=== PATIENT | female | born 1955 | race Caucasian/White ===

== ENCOUNTER 2022-09-16 14:02 | Outpatient (CLI) | payer MEDICARE ==
--- NOTE | 2022-09-16 09:26 | XRAY Report ---
PROCEDURE: Ankle 3 View LT INDICATIONS: LEFT ANKLE PAIN TECHNIQUE: 3 views of the ankle were acquired. COMPARISON: None FINDINGS: Bones: No fractures or dislocations. Small calcaneal plantar bone spur. The distal fibula is have t endinous calcifications with no fracture or avulsion is suspected. Ankle mortise is normally aligned. No suspicious bony lesions. Soft tissues: No tibiotalar joint effusion. Achilles tendon appears normal. IMPRESSION: No acute osseous abnormality. If symptoms continue consider MRI. Reviewed by: Edwin Block on 09/16/2022 9:25 AM [facility] Approved by: Edwin Block on 09/16/2022 9:25 AM [facility] Station ID: [id number]
== END 2022-09-16 14:03 | disposition home or self-care (01) ==
LOC: DI.S 14:02
PROVIDERS: ATTEND Registered Nurse
DX: M25.572 Pain in left ankle and joints of left foot (principal)

== ENCOUNTER 2023-01-01 12:28 | Outpatient (CLI) | payer MEDICARE ==
--- NOTE | 2023-01-01 15:37 | DEXA Report ---
PROCEDURE: Dexa Spine and/or Hip INDICATIONS: POST MENOPAUSAL TECHNIQUE: Dual energy x-ray absorptiometry (DXA) was performed on a [employer] System. Regions measur ed are the AP Spine, femoral neck, and if needed forearm. COMPARISON: None. FINDINGS: Lumbar Spine: Bone Mineral Density 1.163 g/cm/cm,T score -0.1, normal Left Femoral Neck: Bone Mineral Density 0.911 g/cm/cm, T score -0.9, normal Left Hip: Bone Mineral Density 0.901 g/cm/cm,T score -0.8, normal (T score greater or equal to -1.0: NORMAL) (T score from -1.1 to -2.4: OSTEOPENIA) (T score less than or equal to -2.5 to: OSTEOPOROSIS) Impression: Normal bone mineral density. Patients with diagnosis of osteoporosis or osteopenia should have regular bone mineral density assess ment. For those eligible for Medicare, routine testing is allowed once every 2 years. Testing frequ ency can be increased for patients who have rapidly progressing disease or for those who are receivin g medical therapy to restore bone mass. Reviewed by: Arvind Santacruz MD on 01/01/2023 3:36 PM PDT Approved by: Arvind Santacruz MD on 01/01/2023 3:36 PM PDT Station ID: [id number]
== END 2023-01-01 12:29 | disposition home or self-care (01) ==
LOC: DI 12:28
PROVIDERS: ATTEND Internal Medicine
DX: N95.8 Other specified menopausal and perimenopausal disorders (principal)

== ENCOUNTER 2023-12-09 07:21 | Outpatient (CLI) | payer MEDICARE ==
--- NOTE | 2023-12-09 09:45 | Mammography Report ---
BILATERAL DIGITAL DIAGNOSTIC MAMMOGRAM 3D/2D WITH EXAGGERATED CC: 12/09/2023 CLINICAL: Diffuse left breast pain. Due for bilateral. Comparison is made to exam dated: 04/25/2021 mammogram - [facility]. There are scattered areas of fibroglandular density in both breasts (category b / 25%-50% glandular t issue). The left breast has post-operative findings. No significant masses, calcifications, or other findings are seen in either breast. IMPRESSION: BENIGN There is no abnormality seen in the left breast to correspond with the diffuse pain. There is no mammographic evidence of malignancy. Return to annual mammogram screening schedule is rec ommended. Based on the Tyrer Cuzick model (a risk assessment model) the patient's lifetime risk is 5.0% and her 10 year risk is 2.6%. According to the ACR, ACS, and NCCN guidelines, an annual breast MRI exam nura g with mammogram is recommended if the patient's lifetime risk is 20% or greater. This exam was interpreted at Station ID: [id number]. NOTE: For mammograms, a report in lay terms will be sent to the patient. Approximately 15% of breast malignancies will not be visualized mammographically. In the management of a palpable breast mass, a negative mammogram must not discourage biopsy of a clinically suspicious lesion. Electronically Signed By: José Melendez M.D. lc/:12/09/2023 08:32:22 letter sent: No_Letter ACR BI-RADS Category 2: Benign Finding(s) 3342F PARENCHYMAL PATTERN: (A) - The breast(s) demonstrate(s) scattered fibroglandular densities. BI-RADS CATEGORY: (2) - 2 RECOMMENDATION: (ANNUAL) - Recommend routine annual screening mammography. [id number] return to screening LATERALITY: (B)
== END 2023-12-09 07:22 | disposition home or self-care (01) ==
LOC: DI 07:21
PROVIDERS: ATTEND Nurse Practitioner Family
DX: N64.4 Mastodynia (principal); R92.323 Mammographic fibroglandular density, bilateral breasts

== ENCOUNTER 2024-03-10 07:00 | Outpatient (CLI) | payer MEDICARE ==
--- NOTE | 2024-03-10 11:34 | XRAY Report ---
PROCEDURE: Chest 2V INDICATIONS: BRONCHITIS TECHNIQUE: 2 views of the chest were acquired. COMPARISON: None. FINDINGS: Surgical changes and devices: None. Lungs and pleura: Mild peribronchial cuffing. No dense airspace disease or pleural effusion Mediastinum: Normal heart size. Aortic calcifications Bones and chest wall: Unremarkable IMPRESSION: Mild peribronchial cuffing could represent bronchitis or atypical infection. No airspace consolidatio n or pleural effusion. Reviewed by: Joés Melendez MD on 03/10/2024 11:33 AM PDT Approved by: José Melendez MD on 03/10/2024 11:33 AM PDT Station ID: [id number]
== END 2024-03-10 23:59 | disposition home or self-care (01) ==
LOC: DI.S 07:00
PROVIDERS: ATTEND Emergency Medicine
DX: J20.9 Acute bronchitis, unspecified (principal)

== ENCOUNTER 2024-03-10 08:00 | Outpatient (CLI) | payer MEDICARE | END 2024-03-10 08:01 | disposition home or self-care (01) | LOC: LAB.S 08:00 | PROVIDERS: ATTEND Emergency Medicine | DX: R05.9 Cough, unspecified (principal) ==